=== PATIENT | female | born 1950 | race Caucasian/White ===

== ENCOUNTER → 2019-01-31 | Outpatient (CLI) | payer MEDICARE, OTHER ==
[~2019-01-31] MED LIST: REGADENOSON 0.4 MG/5 ML DISP.SYRIN. IV ONE
--- NOTE | 2019-02-05 10:44 | PCVCIMAG ---
APPROVED REPORT Imaging Protocol: Rest Tc-99m/Stress Tc-99m 1 day Study performed: 01/31/2019 08:47:15 Indication: Chest Pain, ER Visit Patient Location: Out-Patient Stress Nurse: Kathy Shane RN MI Tech:DIANNE BartonMT Ht: 5 ft 2 in Wt: 123 lbs BSA: 1.55 m2 HR: 59 bpm BP: 197/95 mmHg BMI: 22.4 Rhythm: Sinus Bradycardia, Non-specific T Wave Abnormality Medical History Medical History: Age, HLP, HTN, Smoker Medications: Amlodipine, ASA, Lisinopril Allergies: PCN Exercise History: Indeterminate Physical Disabilities: Lung status Resting Data Rest SPECT myocardial perfusion imaging was performed in supine position 45 minutes following the intravenous injection of 10.4 mCi of Tc-99m Sestamibi. Time of rest injection: 844 Date: 01/31/2019 Administration Route: IV Administration Site: Left Arm Pharmacologic Stress Pharmacologic stress test was performed by injecting Regadenoson 0.4 mg IV push over 10-15 seconds immediately followed by the intravenous injection of 32.5 mCi of Tc-99m Sestamibi. Time of stress injection: 954 Date: 01/31/2019 Administration Route: IV Administration Site: Left Arm Gated Stress SPECT was performed 45 minutes after stress injection. The images were gated to evaluate regional wall motion and calculate left ventricular ejection fraction. Stress Test Details Stress Test: Pharmacologic stress testing performed using 0.4 mg of regadenoson per 5 mL given IV over 10 seconds. Reason for pharmacologic stress test: lung status. HRMax Heart Rate (APMHR): 153 bpm Resting HR: 59 bpmTarget HR (85% APMHR): 130 bpm Max HR Achieved: 88 bpm % of APMHR: 57 Recovery HR: 78 bpm BP Resting BP: 197/95 mmHg Max BP: 185/94 mmHg Recovery BP: 140/79 mmHg ECG Resting ECG: Sinus Bradycardia, Non-specific T Wave Abnormality Stress ECG: Sinus Rhythm, Non-specific T Wave Abnormality Arrhythmia: None Recovery ECG: Sinus Rhythm, Non-specific T Wave Abnormality Clinical Reason for Termination: Completed protocol Stress Symptoms: Abdominal Discomfort, Dyspnea Symptoms resolved with caffeine. Stress ECG Conclusion 1. adequate response to iv lexiscan 2. inadequate heart rate for ecg diagnosis Study Data Post stress, the left ventricular ejection was 60%.. SSS: 0 SRS: 0 SDS: 0 TID = 1.11. Perfusion There is a small area of mildly reduced uptake in the apical segment of the anterior wall which is seen on the stress images as well as the resting images. This area thickens and moves normally and is most consistent with attenuation artifact. Wall Motion Normal left ventricular wall motion. Nuclear Conclusion ECG Findings: non-diagnostic Clinical Findings: negative for ischemia Nuclear Findings: negative for ischemia Exercise Capacity: not assessed Left Ventricular Function: normal 1. low risk study 2. post stress lvef 60% without wall motion abnormalities Interpreted by: Katlin Flanagan MD Electronically Approved: 02/05/2019 10:41:52 <Conclusion> 1. adequate response to iv lexiscan 2. inadequate heart rate for ecg diagnosis
== END | disposition home or self-care (01) ==
LOC: PCVCIMAG 08:21
PROVIDERS: ATTEND Internal Medicine
DX: R07.9 Chest pain, unspecified (principal); I10 Essential (primary) hypertension; E78.5 Hyperlipidemia, unspecified; M81.0 Age-related osteoporosis without current pathological fracture; Z90.49 Acquired absence of other specified parts of digestive tract; Z83.3 Family history of diabetes mellitus; Z82.49 Family history of ischemic heart disease and other diseases of the circulatory system
CPT/HCPCS: 78452; 93017; A9500; J2785

== ENCOUNTER → 2019-03-10 | Outpatient (CLI) | payer MEDICARE, OTHER ==
--- NOTE | 2019-03-10 18:28 | PCVCIMAG ---
EXAM: BILATERAL RENAL ULTRASOUND AND BILATERAL RENAL DUPLEX INDICATION: Hypertension FINDINGS: Right kidney: Length measures 9.2 cm. No hydronephrosis or extensive renal scarring. Right renal duplex: Adequate technical quality. No sonographic evidence of renal artery stenosis. The aortic to renal artery ratio is 1.4. The renal vein is patent. Left kidney: Length measures 9.6 cm. No hydronephrosis or extensive renal scarring. Left renal duplex: Adequate technical quality. There are 2 left renal arteries. No sonographic evidence of renal artery stenosis. The aortic to renal artery ratio is 1.9. The renal vein is patent. Bladder: No obvious abnormalities. IMPRESSION: No significant renal artery stenosis. No hydronephrosis bilaterally. LOC:[id number]
--- NOTE | 2019-03-11 12:43 | PCVCIMAG ---
APPROVED REPORT Study performed: 03/10/2019 10:50:37 EXAM: Comprehensive 2D, Doppler, and color-flow Echocardiogram Patient Location: Echo lab Status: routine BSA: 1.55 HR: 64 bpmBP: 142/82 mmHg Rhythm: NSR Other Information Study Quality: Adequate Risk Factors: Cardiac Risk Factors: HTN, Smoking Indications Chest Pain Hypertension/HDD 2D Dimensions IVSd: 10.80 (7-11mm) LVDd: 41.00 mm PWd: 11.57 (7-11mm)Ascending Ao: 34.01 (22-36mm) LVDs: 29.87 (25-40mm) Left Atrium: 31.77 (27-40mm) Aortic Root: 33.93 mm LV Single Plane 4CH: 59.36 % LV Single Plane 2CH: 58.65 % Biplane EF: 59.0 % Volumes Left Atrial Volume (Systole) Single Plane 4CH: 30.49 mLSingle Plane 2CH: 45.48 mL LA ESV Index: 25.00 mL/m2 Aortic Valve AoV Peak Conner.: 1.60 m/s AO Peak Gr.: 10.24 mmHgLVOT Max P.35 mmHg LVOT Max V: 1.04 m/s Mitral Valve E/A Ratio: 0.8 MV Decel. Time: 213.73 ms MV E Max Conner.: 0.70 m/s MV A Conner.: 0.92 m/s IVRT: 162.63 ms Pulmonary Valve PV Peak Conner.: 1.10 m/sPV Peak Gr.: 4.88 mmHg Pulmonary Vein P Vein S: 0.44 m/sP Vein A: 0.35 m/s P Vein D: 0.53 m/sP Vein A Dur.: 141.9 msec P Vein S/D Ratio: 0.83 Tricuspid Valve TR Peak Conner.: 2.99 m/s TR Peak Gr.: 35.75 mmHg Left Ventricle The left ventricle is normal size. There is normal LV segmental wall motion. Borderline concentric left ventricular hypertrophy. Left ventricular systolic function is normal. The left ventricular ejection fraction is within the normal range. LVEF is 55-60%. Grade I - abnormal relaxation pattern. Right Ventricle The right ventricle is normal size. The right ventricular systolic function is normal. Atria The left atrium size is normal. The right atrium size is normal. Aortic Valve The aortic valve is normal in structure. Trace aortic regurgitation. There is no aortic valvular stenosis. Mitral Valve The mitral valve is normal in structure. There is no mitral valve regurgitation noted. No evidence of mitral valve stenosis. Tricuspid Valve The tricuspid valve is normal in structure. Mild tricuspid regurgitation with PAP of 42 mmHg. Pulmonic Valve The pulmonary valve is normal in structure. There is no pulmonic valvular regurgitation. Great Vessels The aortic root is normal in size. IVC is normal in size and collapses >50% with inspiration. Pericardium There is no pericardial effusion. There is no pleural effusion. <Conclusion> The left ventricle is normal size. LVEF is 55-60%. The aortic valve is normal in structure. Trace aortic regurgitation. The mitral valve is normal in structure. The tricuspid valve is normal in structure. Mild tricuspid regurgitation with PAP of 42 mmHg. The pulmonary valve is normal in structure. There is no pericardial effusion.
== END ==
LOC: PCVCIMAG 09:40
PROVIDERS: ATTEND Internal Medicine
DX: I08.1 Rheumatic disorders of both mitral and tricuspid valves (principal); I10 Essential (primary) hypertension; R07.9 Chest pain, unspecified
CPT/HCPCS: 76770; 93306; 93975

== ENCOUNTER → 2019-03-17 | Outpatient (CLI) | payer MEDICARE, OTHER | END | disposition home or self-care (01) | LOC: PCVCCLINIC 10:00 | PROVIDERS: ATTEND Internal Medicine | DX: R07.9 Chest pain, unspecified (principal); I10 Essential (primary) hypertension; E78.5 Hyperlipidemia, unspecified; M81.0 Age-related osteoporosis without current pathological fracture; F17.200 Nicotine dependence, unspecified, uncomplicated; Z90.49 Acquired absence of other specified parts of digestive tract; Z80.9 Family history of malignant neoplasm, unspecified; Z82.49 Family history of ischemic heart disease and other diseases of the circulatory system; Z88.0 Allergy status to penicillin; Z79.899 Other long term (current) drug therapy; Z83.3 Family history of diabetes mellitus; F17.210 Nicotine dependence, cigarettes, uncomplicated | CPT/HCPCS: G0463 ==